=== PATIENT | female | born 1970 | race African-American/Black ===

== ENCOUNTER 2019-09-05 11:43 | Emergency (ER) | payer SELFPAY ==
--- NOTE | 2019-09-05 14:17 | RAD ---
PA AND LATERAL VIEWS OF CHEST: Date: 09/05/2019 HISTORY: Cough, exacerbation of asthma, shortness of breath. COMPARISON: 07/17/2015. FINDINGS: The heart size is normal. The aorta is tortuous. The lungs are well expanded without lobar consolidat ion, pneumothoraces, or pleural effusions. No acute osseous abnormalities are seen. IMPRESSION: No radiographic evidence of acute cardiopulmonary process. POS: [facility]
== END 2019-09-05 14:04 | disposition home or self-care (01) ==
LOC: ERS 11:43
DX: J45.901 Unspecified asthma with (acute) exacerbation (principal); J43.9 Emphysema, unspecified; E11.9 Type 2 diabetes mellitus without complications; I10 Essential (primary) hypertension; Z79.84 Long term (current) use of oral hypoglycemic drugs; Z79.899 Other long term (current) drug therapy
CPT/HCPCS: 71046; 94640; J7620

== ENCOUNTER 2020-06-21 08:40 | Emergency (ER) | payer SELFPAY ==
[2020-06-21] MEDS ORDERED: Dexamethasone 10 MG/ML VIAL ONE (09:14)
== END 2020-06-21 10:15 | disposition home or self-care (01) ==
LOC: ERS 08:40
DX: J44.9 Chronic obstructive pulmonary disease, unspecified (principal); J45.901 Unspecified asthma with (acute) exacerbation; E11.9 Type 2 diabetes mellitus without complications; I10 Essential (primary) hypertension; Z79.84 Long term (current) use of oral hypoglycemic drugs; Z79.899 Other long term (current) drug therapy
CPT/HCPCS: 94640; J1100; J7620